=== PATIENT | female | born 1995 | race African-American/Black ===

== ENCOUNTER 2017-12-19 14:09 | Emergency (ER) | payer SELFPAY ==
[~2017-12-19] VITALS: Ht 170.2 cm; Wt 107.5 kg
[2017-12-19 14:16] VITALS: BP 139/63; PULSE 86; RESP 18; TEMP 98.4
--- NOTE | 2017-12-19 16:55 | PD ---
HPI Chief Complaint: Injury Time Seen by Provider: 16:36 Travel History International Travel<30 days: No Contact w/Intl Traveler<30days: No Traveled to known affect area: No History of Present Illness HPI 22y female presents to the ED c/o a wound to the left great toe and left ankle pain after a fall that occurred last night. Patient says that she was in her dorm when she tripped and fell scraping her left great toe and spraining her left ankle. Patient is unable to describe her left ankle injury. Patient denies numbness or tingling. Has full range of motion of the ankle. Denies LOC , head trauma. Says that she was immediately able to walk on the foot after the incident. She denies chronic medical issues medication use. She does not know when her last tetanus vaccination was. [facility] Past Medical History Anemia: Yes Diminished Hearing: No Immunizations Current: No ?: Not LMP: 12/11/17 Past Surgical History Surgical History: No Previous Surgery Social History Alcohol Use: No Tobacco Use: No Substance Use: No Allergies-Medications (Allergen,Severity, Reaction): Coded Allergies: No Known Allergies (Unverified , 12/19/17) Review of Systems Except as stated in HPI: all other systems reviewed are Neg Physical Exam Narrative GENERAL: Well-nourished, well-developed patient. SKIN: Focused skin assessment warm/dry. HEAD: Normocephalic. EYES: No scleral icterus. No injection or drainage. NECK: Supple, trachea midline. No JVD or lymphadenopathy. CARDIOVASCULAR: Regular rate and rhythm without murmurs, gallops, or rubs. RESPIRATORY: Breath sounds equal bilaterally. No accessory muscle use. GASTROINTESTINAL: Abdomen soft, non-tender, nondistended. No CVA tenderness MUSCULOSKELETAL: No cyanosis, or edema. left toe- avulsion great toe without involvement of the nail, no crepitus or deformities, no ecchymosis. Right ankle-no tenderness over the medial or lateral malleolus, mild tenderness palpation to the talofibular ligament, full range of motion, no significant edema BACK: Nontender without obvious deformity. No CVA tenderness. Data Data Last Documented VS Vital Signs Date Time Temp Pulse Resp B/P (MAP) Pulse Ox O2 Delivery O2 Flow Rate FiO2 12/19/17 16:21 Room Air 12/19/17 14:16 98.4 86 18 139/63 (88) Orders Orders Wound Care (12/19/17 16:45) Support Splint (12/19/17 16:45) Tetanus/Diphtheria Tox Adult (Tetanus/Di (12/19/17 17:00) Ed Discharge Order (12/19/17 17:02) [facility] Medical Decision Making Medical Screen Exam Complete: Yes Emergency Medical Condition: Yes Differential Diagnosis Left great toe avulsion, abrasion, saline Narrative Course 22y female presents to the ED c/o a wound to the left great toe and left ankle pain after a fall that occurred last night. Patient says that she was in her dorm when she tripped and fell scraping her left great toe and spraining her left ankle. Patient is unable to describe her left ankle injury. Patient denies numbness or tingling. Has full range of motion of the ankle. Denies LOC , head trauma. Says that she was immediately able to walk on the foot after the incident. She denies chronic medical issues medication use. She does not know when her last tetanus vaccination was. Vital signs stable. Physical exam findings consistent with a an avulsion to the left great toe without nail involvement, superficial. Right ankle full range of motion without deformities, ecchymosis, laxity. No pain over lateral and medial malleolus. I offer this patient imaging studies of her ankle but she refused and I did not believe it was necessary. Patient was discharged with wound care, Tico wrap for her right ankle. Advised that she may take Tylenol or Motrin per package instructions. Follow-up with primary care physician within 2-3 days. Return for worsening or persistent symptoms Diagnosis Primary Impression: Ankle sprain Qualified Codes: S93.431A - Sprain of tibiofibular ligament of right ankle, initial encounter Additional Impression: Toe avulsion Qualified Codes: S91.109A - Unspecified open wound of unspecified toe(s) without damage to nail, initial encounter Referrals: [facility] Additional Instructions: Keep your left toe clean and dry. Ensure you wash your toe regularly and keep it dry. You may continue to Tico wrap her right ankle for symptomatic relief. Disposition: 01 DISCHARGE HOME Condition: Stable Meena Srinivasan Dec 19, 2017 16:54
[2017-12-19] MEDS ORDERED: TETANUS/DIPHTHERIA TOXOID ADULT 0.5 ML VIAL IM ONE (17:00)
== END 2017-12-19 18:00 | disposition home or self-care (01) ==
LOC: NEPA 14:09
DX: S93.431A Sprain of tibiofibular ligament of right ankle, initial encounter (principal); S91.102A Unspecified open wound of left great toe without damage to nail, initial encounter; W01.0XXA Fall on same level from slipping, tripping and stumbling without subsequent striking against object, initial encounter; Y92.169 Unspecified place in school dormitory as the place of occurrence of the external cause; Z23 Encounter for immunization
CPT/HCPCS: 90471; 90714

== ENCOUNTER 2018-02-27 18:48 | Emergency (ER) | payer SELFPAY ==
[2018-02-27 18:52] VITALS: BP 134/69; PULSE 75; RESP 16; TEMP 98.3; O2SAT 100
--- NOTE | 2018-02-28 02:09 | PD ---
HPI Chief Complaint: Bleeding Time Seen by Provider: 00:50 Travel History International Travel<30 days: No Contact w/Intl Traveler<30days: No Traveled to known affect area: No History of Present Illness HPI Patient is a 22-year-old female with no significant past medical history for 3 days she has been having bright red blood on the toilet paper after moving her bowels. She denies constipation she denies history of diverticulitis she denies any history of hemorrhoids. She says her period is not due for over a few more weeks and it is a regular to begin with but she is sure it is not. Blood that she sees on the toilet paper. Her stool is normal formed not black no change in her actual bowel habits or movements. She has no abdominal pain and she has no rectal pain at this time is just she is worried because she has been having episodes of bright red blood per rectum. She has not seen another doctor she does not take excessive Motrin she has no abdominal pain she has no epigastric pain she has no rectal pain PFSH Past Medical History Anemia: Yes Diminished Hearing: No Immunizations Current: No Tetanus Vaccination: < 5 Years ?: Not LMP: 01/2018 Past Surgical History Surgical History: No Previous Surgery Social History Alcohol Use: No Tobacco Use: No Substance Use: No Allergies-Medications (Allergen,Severity, Reaction): Coded Allergies: No Known Allergies (Unverified , 12/19/17) Reported Meds & Prescriptions Reported Meds & Active Scripts Active No Active Prescriptions or Reported Medications Review of Systems Except as stated in HPI: all other systems reviewed are Neg Physical Exam Narrative GENERAL: Nontoxic no shortness of breath no orthostatics SKIN: Warm and dry. HEAD: Atraumatic. Normocephalic. EYES: Pupils equal and round. No scleral icterus. No injection or drainage. ENT: No nasal bleeding or discharge. Mucous membranes pink and moist. NECK: Trachea midline. No JVD. CARDIOVASCULAR: Regular rate and rhythm. RESPIRATORY: No accessory muscle use. Clear to auscultation. Breath sounds equal bilaterally. GASTROINTESTINAL: Abdomen soft, non-tender, nondistended. Hepatic and splenic margins not palpable. MUSCULOSKELETAL: Extremities without clubbing, cyanosis, or edema. No obvious deformities. NEUROLOGICAL: Awake and alert. No obvious cranial nerve deficits. Motor grossly within normal limits. Five out of 5 muscle strength in the arms and legs. Normal speech. PSYCHIATRIC: Appropriate mood and affect; insight and judgment normal. Rectal exam no stool found in the vault no hemorrhoids felt or seen and it is guaiac negative but there is very minimal sample on the glove Data Data Last Documented VS Orders Orders Complete Blood Count With Diff (02/28/18 02:06) Comprehensive Metabolic Panel (02/28/18 02:06) Prothrombin Time / Inr (Pt) (02/28/18 02:07) Ed Discharge Order (02/28/18 04:23) Labs Laboratory Tests Test 02/28/18 03:05 White Blood Count 7.9 TH/MM3 Red Blood Count 5.15 MIL/MM3 Hemoglobin 10.0 GM/DL Hematocrit 32.5 % Mean Corpuscular Volume 63.1 FL Mean Corpuscular Hemoglobin 19.5 PG Mean Corpuscular Hemoglobin Concent 30.9 % Red Cell Distribution Width 20.2 % Platelet Count 324 TH/MM3 Mean Platelet Volume 8.9 FL Neutrophils (%) (Auto) 51.1 % Lymphocytes (%) (Auto) 38.4 % Monocytes (%) (Auto) 7.6 % Eosinophils (%) (Auto) 1.9 % Basophils (%) (Auto) 1.0 % Neutrophils # (Auto) 4.0 TH/MM3 Lymphocytes # (Auto) 3.0 TH/MM3 Monocytes # (Auto) 0.6 TH/MM3 Eosinophils # (Auto) 0.1 TH/MM3 Basophils # (Auto) 0.1 TH/MM3 CBC Comment DIFF FINAL Differential Comment Prothrombin Time 10.2 SEC Prothromb Time International Ratio 1.0 RATIO Blood Urea Nitrogen 7 MG/DL Creatinine 0.85 MG/DL Random Glucose 88 MG/DL Total Protein 7.9 GM/DL Albumin 3.5 GM/DL Calcium Level 9.1 MG/DL Alkaline Phosphatase 108 U/L Aspartate Amino Transf (AST/SGOT) 12 U/L Alanine Aminotransferase (ALT/SGPT) 20 U/L Total Bilirubin 0.2 MG/DL Sodium Level 141 MEQ/L Potassium Level 3.5 MEQ/L Chloride Level 105 MEQ/L Carbon Dioxide Level 27.0 MEQ/L Anion Gap 9 MEQ/L Estimat Glomerular Filtration Rate 101 ML/MIN MDM Medical Decision Making Medical Screen Exam Complete: Yes Emergency Medical Condition: Yes Differential Diagnosis hemorrhoids vs diverticulitis vs AV malformation vs colitis invasion infectious other Narrative Course Rectal exam is guaiac negative she has no hemorrhoids seen no gross blood on the glove she has H and H 10 /30 and normal orthostatics and safe for oupt follw up Diagnosis Primary Impression: Rectal bleed Patient Instructions: General Instructions, Rectal Bleeding (ED) Scripts No Active Prescriptions or Reported Meds Disposition: 01 DISCHARGE HOME Condition: Good Jesus Dutton MD February 28, 2018 02:09
[2018-02-28 03:17] LABS: BASOPHIL # 0.1 TH/MM3 (0-0.2); EOSINOPHIL # 0.1 TH/MM3 (0-0.4); EOSINOPHIL % 1.9 % (0.0-4.0); HEMATOCRIT 32.5 % (35.0-46.0); LYMPH % 38.4 % (9.0-44.0); MEAN CELL VOLUME 63.1 FL (80.0-100.0); MEAN CORPUSCULAR HEMOGLOBIN 19.5 PG (27.0-34.0); MEAN CORPUSCULAR HGB CONC 30.9 % (32.0-36.0); MEAN PLATELET VOLUME 8.9 FL (7.0-11.0); MONO % 7.6 % (0.0-8.0); MONOCYTE # 0.6 TH/MM3 (0-0.9); NEUT % 51.1 % (16.0-70.0); PLATELET COUNT 324 TH/MM3 (150-450); RED BLOOD COUNT 5.15 MIL/MM3 (4.00-5.30); RED CELL DISTRIBUTION WIDTH 20.2 % (11.6-17.2); WHITE BLOOD COUNT 7.9 TH/MM3 (4.0-11.0)
[2018-02-28 03:34] LABS: ALBUMIN 3.5 GM/DL (3.4-5.0); ALT (GPT) 20 U/L (10-53); AST (GOT) 12 U/L (15-37); BLOOD UREA NITROGEN 7 MG/DL (7-18); CALCIUM 9.1 MG/DL (8.5-10.1); CHLORIDE 105 MEQ/L (98-107); CREATININE 0.85 MG/DL (0.50-1.00); GLOMERULAR FILTRATION RATE 101 ML/MIN (>89); GLUCOSE,RANDOM 88 MG/DL (74-106); SODIUM (NA) 141 MEQ/L (136-145)
[2018-02-28 03:35] LABS: PROTHROMBIN TIME - PATIENT 10.2 SEC (9.8-11.6)
[2018-02-28 03:37] LABS: ALKALINE PHOSPHATASE 108 U/L (45-117); TOTAL BILIRUBIN ADULT 0.2 MG/DL (0.2-1.0); TOTAL PROTEIN 7.9 GM/DL (6.4-8.2)
[2018-02-28 04:25] VITALS: BP 140/82
== END 2018-02-28 04:34 | disposition home or self-care (01) ==
LOC: NEPE 18:48
DX: K62.5 Hemorrhage of anus and rectum (principal)
CPT/HCPCS: 80053; 85025; 85610; 99284